=== PATIENT | female | born 1975 | race Caucasian/White ===

== ENCOUNTER 2022-02-27 00:55 | Day surgery (SDC) | payer OTHER, SELFPAY ==
[2022-02-08 09:19] VITALS: BMI 38.9
--- NOTE | 2022-02-26 16:14 | WPDANESEPPF ---
Anes - Initial Pre Proc Eval Procedure: Operation Date: 02/27/22 11:30 Proposed Procedures p Colonoscopy - Philippe Gray MD Date/Time: 02/26/22 16:14 Surgeon: Philippe Gray MD Pre Op Diagnosis: diarrhea Patient Data Age: 46 Gender: F Height: 1.7 m Weight: 113 kg Allergies Allergy/AdvReac Type Severity Reaction Status Date / Time meperidine AdvReac Severe Vomiting Verified 02/27/22 09:59 Home Medications Medication Instructions Recorded Confirmed Type colestipol 1 gram tablet 1 g PO BID #60 tabs 01/16/22 02/27/22 Rx duloxetine 20 mg capsule,delayed 20 mg PO DAILY 01/16/22 02/27/22 History release hyoscyamine sulfate 0.125 mg 0.125 mg sublingual .q6h prn PRN 02/08/22 02/27/22 History sublingual tablet (Levsin/SL) Spasms Patient hx anesthesia problems: none Family hx anesthesia problems: none Results Review: All pre-operative results and documents have been reviewed as part of the pre-operative evaluation. FORMERLY [facility] Past Medical History Medical History (Updated 02/26/22 @ 16:15 by Phil Hi MD) Anxiety Chronic diarrhea IBS (irritable bowel syndrome) Obesity Psoriasis Surgical History Surgical History History of cholecystectomy Social History Social History Smoking status: Never smoker Alcohol intake: never Substance use: never Substance use type: does not use Living arrangements: with family Spiritual care concerns: No Anes - Eval Final PreProcedure Day of Procedure 02/26/22 16:14 Patient weight: obese Heart: regular rate and rhythm Lungs: clear to auscultation and normal air movement Airway: Mallampati scale class II Neurological: alert and oriented Last oral intake: >/= 8 hours ASA classification: II Emergent: no Anesthetic plan: proceed Anesthesia type and monitoring: general GIVS Results Review: All pre-operative results and documents have been reviewed as part of the pre-operative evaluation. Informed Consent: The patient's anesthetic plan and its attendant risks and benefits were discussed with the patient/family/POA. Questions were solicited and answers provided to the satisfaction of the patient/family/POA.
[2022-02-27 10:00] VITALS: BP 133/75; PULSE 80; RESP 16; TEMP 36.4; O2SAT 100
[2022-02-27] MEDS: LACTATED RINGERS 1,000 ML 150 ML IV CONT (10:03)
--- NOTE | 2022-02-27 11:06 | PM.HPGS ---
History of Present Illness History of Present Illness Consent: Risks, benefits, and alternatives have been discussed and questions answered. Patient agrees to proceed with procedure. Chief complaint: diarrhea Narrative: Jesica King is a 46 year old female with cramping and loose stools, recently stared on medication with only some relief, last colonoscopy close to 20 years ago. Review of Systems Constitutional: Constitutional: Denies headache(s) and Denies weakness Eyes: Eyes: Denies blurry vision ENT: Reports Normal hearing present, Denies headache(s) and Denies neck pain Cardiovascular: Cardiovascular: Denies chest pain and Denies dyspnea Respiratory: Respiratory: Denies dyspnea Gastrointestinal: Gastrointestinal: Reports no additional gastrointestinal complaints Genitourinary: Genitourinary: Denies dysuria Musculoskeletal: Musculoskeletal: Denies neck pain Integumentary/Breasts: Skin/Breast: Denies dry skin Neurologic: Reports Normal hearing present, Denies headache(s) and Denies weakness Psychiatric: Psychiatric: Denies anxiety Endocrine: Endocrine: Denies change in body appearance Hematologic/Lymphatic: Hematologic/Lymphatic: Denies easy bleeding Allergic/Immunologic: Allergic/Immunologic: Denies urticaria PMFSH Past Medical History Medical History (Updated 02/26/22 @ 16:15 by Phil Hi MD) Anxiety Chronic diarrhea IBS (irritable bowel syndrome) Obesity Psoriasis Surgical History Surgical History History of cholecystectomy Social History Social History Smoking status: Never smoker Alcohol intake: never Substance use: never Substance use type: does not use Living arrangements: with family Spiritual care concerns: No Meds Home Medications and Allergies Home Medications Medication Instructions Recorded Confirmed Type colestipol 1 gram tablet 1 g PO BID #60 tabs 01/16/22 02/27/22 Rx duloxetine 20 mg capsule,delayed 20 mg PO DAILY 01/16/22 02/27/22 History release hyoscyamine sulfate 0.125 mg 0.125 mg sublingual .q6h prn PRN 02/08/22 02/27/22 History sublingual tablet (Levsin/SL) Spasms Allergies Allergy/AdvReac Type Severity Reaction Status Date / Time meperidine AdvReac Severe Vomiting Verified 02/27/22 09:59 Vital Signs Vital Signs - 24 hr 02/27/22 10:00 Temperature 97.6 F Pulse Rate 80 Respiratory Rate 16 Blood Pressure 133/75 Pulse Oximetry 100 Oxygen Delivery Room Air Exam Const: General: comfortable and no acute distress HENMT: General nose exam: Normal nares present Eyes: General: appearance normal, both eyes and all related structures Neck: Neck: no JVD Resp: Auscultation: clear to auscultation bilaterally Cardio: Rate: regular rate Rhythm: regular rhythm GI: Inspection: non-distended GI Palp: Yes Soft to palpation Skin: General skin exam: normal color Neuro: General: gait normal Speech: normal speech Extrem: General: normal to inspection Psych: Mental Status: mental status grossly normal Assessment and Plan Assessment and plan (1) IBS (irritable bowel syndrome): Code(s): K58.9 - Irritable bowel syndrome without diarrhea Status: Acute Assessment and Plan: colonoscopy with random colon bx
[2022-02-27 11:32] VITALS: BP 126/74; PULSE 80; RESP 20; O2SAT 99
[2022-02-27 11:42] VITALS: BP 127/62; PULSE 69; RESP 19; O2SAT 99
[2022-02-27 11:52] VITALS: BP 133/77; PULSE 64; RESP 17; O2SAT 100
== END 2022-02-27 12:00 | disposition home or self-care (01) ==
PROVIDERS: PCP Family Medicine; Visit Provider Internal Medicine Gastroenterology
PROC: 0DJD8ZZ Inspection of Lower Intestinal Tract, Via Natural or Artificial Opening Endoscopic (ICD-10-PCS; CPT 45378; principal; 2022-02-27 11:30)
DX: Z12.11 Encounter for screening for malignant neoplasm of colon (principal); K58.0 Irritable bowel syndrome with diarrhea; D12.5 Benign neoplasm of sigmoid colon; K64.8 Other hemorrhoids; L40.9 Psoriasis, unspecified; F41.9 Anxiety disorder, unspecified; E66.9 Obesity, unspecified; Z68.39 Body mass index [BMI] 39.0-39.9, adult
CPT/HCPCS: 45385; 45380; 88305; J2704; J7120

== ENCOUNTER 2025-06-20 01:30 | Day surgery (SDC) | payer OTHER, SELFPAY ==
[2025-06-14 08:30] VITALS: BMI 23.9
[2025-06-20 10:25] VITALS: BP 109/61; PULSE 71; RESP 20; TEMP 36.5; O2SAT 99
[2025-06-20] MEDS: LACTATED RINGERS 1,000 ML 150 ML IV CONT (10:33)
--- NOTE | 2025-06-20 10:44 | P.PNAN_ITS ---
Anes - Initial Pre Proc Eval Procedure: Operation Date: 06/20/25 14:00 Proposed Procedures p Screening Colonoscopy - Philippe Gray MD Date/Time: 06/20/25 10:44 Surgeon: Philippe Gray MD Pre Op Diagnosis: Personal history of colon polyps, unspecified Patient Data Age: 49 Gender: F Height: 1.7 m Weight: 69.4 kg Allergies Allergy/AdvReac Type Severity Reaction Status Date / Time meperidine AdvReac Severe Vomiting Verified 06/20/25 10:24 Home Medications ?Medication ?Instructions ?Recorded ?Confirmed ?Type duloxetine 20 mg capsule,delayed 20 mg PO DAILY 06/20/25 History release hyoscyamine sulfate 0.125 mg 0.125 mg sublingual .q6h prn PRN 02/08/22 06/14/25 History sublingual tablet (Levsin/SL) Spasms tirzepatide (weight loss) 10 10 mg subcut WEEKLY 06/1406/20/25 History mg/0.5 mL subcutaneous pen injector (Zepbound) Patient hx anesthesia problems: none Family hx anesthesia problems: none Results Review: All pre-operative results and documents have been reviewed as part of the pre- operative evaluation. REPLACED BY [facility] Past Medical History Medical History Obesity Chronic diarrhea Psoriasis IBS (irritable bowel syndrome) Anxiety Surgical History Surgical History History of cholecystectomy Social History Social History Smoking status: Never smoker Alcohol intake: never Substance use: never Substance use type: does not use Living arrangements: with family Spiritual care concerns: No Anes - Eval Final PreProcedure Day of Procedure 06/20/25 10:44 Patient weight: normal Heart: regular rate and rhythm Lungs: clear to auscultation Airway: Mallampati scale class 1 Neurological: alert and oriented Last oral intake: >/= 8 hours ASA classification: II Emergent: no Anesthetic plan: proceed Anesthesia type and monitoring: general GIVS and standard monitoring Results Review: All pre-operative results and documents have been reviewed as part of the pre- operative evaluation. Informed Consent: The patient's anesthetic plan and its attendant risks and benefits were discussed with the patient/family/POA. Questions were solicited and answers provided to the satisfaction of the patient/family/POA.
--- NOTE | 2025-06-20 11:14 | PM.HPGS ---
History of Present Illness History of Present Illness Consent: Risks, benefits, and alternatives have been discussed and questions answered. Patient agrees to proceed with procedure. Chief complaint: Personal history of colon polyps, unspecified Narrative: Jesica King is a 49 year old female with colon polyp in 2021 Review of Systems Review of Systems: All systems reviewed & are unremarkable except as noted in HPI and below PMFSH Past Medical History Medical History (Updated 06/20/25 @ 11:14 by Philippe Gray MD) Colon polyp Obesity Chronic diarrhea Psoriasis IBS (irritable bowel syndrome) Anxiety Surgical History Surgical History History of cholecystectomy Social History Social History Smoking status: Never smoker Alcohol intake: never Substance use: never Substance use type: does not use Living arrangements: with family Spiritual care concerns: No Meds Home Medications and Allergies Home Medications ?Medication ?Instructions ?Recorded ?Confirmed ?Type duloxetine 20 mg capsule,delayed 20 mg PO DAILY 01/16/22 06/20/25 History release hyoscyamine sulfate 0.125 mg 0.125 mg sublingual .q6h prn PRN 02/08/22 06/14/25 History sublingual tablet (Levsin/SL) Spasms tirzepatide (weight loss) 10 10 mg subcut WEEKLY 06/14/25 06/20/25 History mg/0.5 mL subcutaneous pen injector (Zepbound) Allergies Allergy/AdvReac Type Severity Reaction Status Date / Time meperidine AdvReac Severe Vomiting Verified 06/20/25 10:24 Exam Const: General: comfortable and no acute distress HENMT: Face/Nose/Sinus: Normal nares present Eyes: General: appearance normal, both eyes and all related structures Neck: Neck: no JVD Resp: Auscultation: clear to auscultation bilaterally Cardio: Rate: regular rate Rhythm: regular rhythm GI: Inspection: non-distended GI Palp: Yes Soft to palpation Skin: General skin exam: normal color Extrem: General: normal to inspection Psych: Mental Status: mental status grossly normal Assessment and Plan Assessment and plan (1) Colon polyp: Code(s): K63.5 - Polyp of colon Status: Acute Assessment and Plan: colonoscopy
--- NOTE | 2025-06-20 11:28 | S_PTH ---
PATIENT: Jesica King LOC: [facility]#:[id number] AGE/SX: 49/F ROOM: RE06/20/[address]: Philippe Gray MD : 1975 BED: DIS: 06/20/2025 SPEC #: [id number] RECD: 06/20/25 12:42 STATUS: MARY KAY RE #: [id number] EBONI: 06/20/25 11:[address]: Philippe Gray DEPT: [facility] Surgical RECD BY: Adriana Cifuentes ENTERED: 06/20/25 12:43 SP TYPE: Surgical OTHR DR: Alejandrina ElizabethMD Tissues: A - Colon Polypectomy B - Colon Polypectomy Procedures: Hematoxylin and Eosin Stain Gross and Microscopic Level 4
[2025-06-20 11:33] VITALS: BP 98/52; PULSE 64; RESP 16; O2SAT 100
[2025-06-20 11:43] VITALS: BP 101/67; PULSE 62; RESP 15; O2SAT 100
[2025-06-20 11:53] VITALS: BP 101/63; PULSE 55; RESP 16; O2SAT 100
== END 2025-06-20 12:00 | disposition home or self-care (01) ==
PROVIDERS: PCP Family Medicine; Referring Provider Internal Medicine Gastroenterology; Visit Provider Internal Medicine Gastroenterology
PROC: 0DJD8ZZ Inspection of Lower Intestinal Tract, Via Natural or Artificial Opening Endoscopic (ICD-10-PCS; CPT 45378; principal; 2025-06-20 14:00)
DX: Z12.11 Encounter for screening for malignant neoplasm of colon (principal); D12.3 Benign neoplasm of transverse colon; K63.5 Polyp of colon; K64.8 Other hemorrhoids
CPT/HCPCS: 45385; 45380; 88305; J2003; J2704; J7120